=== PATIENT | male | born 1985 | race Hispanic/Latino ===

== ENCOUNTER 2019-06-14 22:18 | Emergency (ER) | payer SELFPAY ==
[~2019-06-14] VITALS: Ht 152.4 cm; Wt 109.0 kg
[~2019-06-14 22:18] MED LIST: AMOXICILLIN500 MG OR; PERCOCET 5/325M1 TAB OR; [UNRECOGNIZED DRUG - REMARK]
[2019-06-15 01:05] VITALS: BP 132/55
== END 2019-06-15 01:05 | disposition home or self-care (01) | DRG 897 ==
LOC: ED 22:18
DX: F12.10 Cannabis abuse, uncomplicated (principal); R00.2 Palpitations
CPT/HCPCS: J2060

== ENCOUNTER 2020-05-25 21:38 | Emergency (ER) | payer SELFPAY ==
[~2020-05-25] VITALS: Ht 170.2 cm; Wt 115.2 kg
[2020-05-25 22:26] LABS: HEMATOCRIT 46.5 % (39.0-50.0); HEMOGLOBIN 14.9 g/dl (14.0-18.0); IMMATURE GRANULOCYTES 0.2 % (0.0-5.0); MEAN CELL VOLUME 87.2 fL CALC (80.0-100.0); NEUT# 7.25 thou/uL (1.82-7.42); RED BLOOD COUNT 5.33 mill/uL (4.70-6.10); RED CELL DISTRI WIDTH 12.6 % (11.5-15.5)
[2020-05-25 22:27] LABS: URINE BILIRUBIN - DIPSTICK NEGATIVE (NEGATIVE); URINE BLOOD DIPSTICK NEGATIVE (NEGATIVE); URINE COLOR YELLOW; URINE GLUCOSE - DIPSTICK NEGATIVE (NEGATIVE); URINE KETONE NEGATIVE (NEGATIVE); URINE LEUK ESTERASE NEGATIVE (NEGATIVE); URINE NITRITE - DIPSTICK NEGATIVE (Negative); URINE PROTEIN - DIPSTICK NEGATIVE (NEG-TRACE); URINE SPECIFIC GRAVITY >=1.030; URINE UROBILINOGEN - DIPSTICK 0.2 E.U./dL (0.2)
[2020-05-25 22:48] LABS: ALBUMIN 4.5 g/dL (3.2-5.0); ALKALINE PHOSPHATASE 79 u/l (38-126); ANION GAP 12 (6-22 (CALC)); BILIRUBIN, TOTAL 0.4 mg/dL (0.0-1.4); BUN 15 mg/dL (9-20); BUN/CREATININE RATIO 15 (12-20 (CALC)); CARBON DIOXIDE 27 mmol/l (22-30); CHLORIDE 101 mmol/l (95-108); GFR > 60 ML/MIN (>=60 (CALC)); GFR FOR AFR.AMER. > 60 ML/MIN (>=60 (CALC)); POTASSIUM 3.6 mmol/l (3.5-5.1); SGOT/AST 65 u/l (17-59); SODIUM 137 mmol/l (137-146)
[2020-05-25 22:59] LABS: MYOGLOBIN 98 ng/mL (0 - 121)
[2020-05-25] MEDS ORDERED: ATIVAN0.5 MG PO (23:10)
[2020-05-25 23:20] VITALS: BP 145/72
== END 2020-05-25 23:23 | disposition home or self-care (01) | DRG 880 ==
LOC: ED 21:38
PROVIDERS: Emergency Medicine
DX: F41.9 Anxiety disorder, unspecified (principal)